=== PATIENT | male | born 1995 | race Caucasian/White ===

== ENCOUNTER 2017-11-13 16:45 | Emergency (ER) | payer OTHER ==
[~2017-11-13] VITALS: Ht 165.1 cm; Wt 68.0 kg
[~2017-11-13 16:45] MED LIST: CYCL10 PO; HYDACE5 PO; IBUP600 PO
[2017-11-13] MEDS ORDERED: ERYT1OIN BOTHEYES (18:17)
[2017-11-13] MEDS ORDERED: Norco 5-325 Ta1 EACH PO (18:19)
== END 2017-11-13 18:45 | disposition home or self-care (01) ==
LOC: ER 16:45
DX: S05.01XA Injury of conjunctiva and corneal abrasion without foreign body, right eye, initial encounter (principal); Z23 Encounter for immunization; F17.200 Nicotine dependence, unspecified, uncomplicated; V43.62XA Car passenger injured in collision with other type car in traffic accident, initial encounter
CPT/HCPCS: 90471; 90714; 99283

== ENCOUNTER 2021-12-26 19:20 | Emergency (ER) | payer SELFPAY ==
[~2021-12-26] VITALS: Ht 165.1 cm; Wt 63.5 kg
[~2021-12-26 19:20] MED LIST changes: +ERYT1OIN BOTHEYES; +Norco 5-325 Ta1 EACH PO
== END 2021-12-26 21:14 | disposition left against medical advice (07) ==
LOC: ER 19:20
DX: R21 Rash and other nonspecific skin eruption (principal); Z53.21 Procedure and treatment not carried out due to patient leaving prior to being seen by health care provider
CPT/HCPCS: 99282